=== PATIENT | female | born 1975 | race Caucasian/White ===

== ENCOUNTER 2016-07-14 19:40 | Emergency (ER) | payer SELFPAY ==
--- NOTE | 2016-07-20 07:51 | ER ---
ADMIT: 07/14/2016 RM/LOC: ER [facility] MR#: [id number] [address] [id number] PALLAVI THOMPSON [address] [place] [id number] Emergency Room Report SEX: F AGE: 41 : 1975 DATE: 07/14/2016 CHIEF COMPLAINT: Right ear pain. HISTORY OF PRESENT ILLNESS: The patient is a 41-year-old female, who comes in with right ear pain x1 day. She had symptoms similar to this about 3 weeks ago and was seen at [facility], was put on clindamycin, they got better and she finished that antibiotic about a week ago. She was also on Ultram at that time for otalgia. She denies any other symptoms at this time other than pain in her right ear. She denies any cold symptoms, runny nose, cough, congestion, sore throat, difficulty swallowing, nausea, vomiting, or fever. PHYSICAL EXAMINATION: HEENT: Shows some mild erythema to the right external canal and TM, but no fluid or pus. Posterior oropharynx is patent, nonerythematous. No swelling. HEART: Regular rate and rhythm. LUNGS: Clear to auscultation. ABDOMEN: Soft. MEDICAL DECISION MAKING: The patient was given a prescription for clindamycin as she is allergic to penicillin, will also be given Ultram. She is placed on 1 week of clindamycin b.i.d. and Ultram p.r.n., and to follow up with [facility]. DIAGNOSES: 1. Otitis media, right. 2. Otalgia. Jamie Lee MD/ coretta JOB #: [id number] CC: Jamie Lee MD, Attending Physician Shavon Shi, [employer], Family Physician
== END 2016-07-14 20:55 | disposition home or self-care (01) ==
LOC: ER 19:40
DX: H66.91 Otitis media, unspecified, right ear (principal); Z88.8 Allergy status to other drugs, medicaments and biological substances